=== PATIENT | female | born 1990 | race Caucasian/White ===

== ENCOUNTER 2017-05-26 12:45 | Inpatient (IN) | payer OTHER ==
[~2017-05-26] VITALS: Ht 167.6 cm; Wt 3.2 kg
[2017-06-14] MEDS ORDERED: PRENATAL TABLE1 EAC2 PO (08:15)
[2017-06-14] MEDS ORDERED: VALTREX1000 MG PO (08:16)
[2017-06-14] MEDS ORDERED: PROTONIX40 MG PO (08:16)
[2017-06-14] MEDS ORDERED: FOLIC ACID0.8 MG PO (08:17)
[2017-06-17] MEDS ORDERED: SENNA8.6 MG PO (13:13)
[2017-06-17] MEDS ORDERED: Mylicon 125MG PO (13:13)
[2017-06-17] MEDS ORDERED: OXYC1TAB9 PO (13:13)
== END 2017-06-17 13:29 | disposition home or self-care (01) | DRG 765 ==
LOC: OB/GYN 06-14 07:46 → LDR 06-14 07:46 → O/R 06-14 11:07 → OB/GYN 06-14 11:36
PROVIDERS: Obstetrics & Gynecology
PROC: 4A1HXCZ Monitoring of Products of Conception, Cardiac Rate, External Approach (ICD-10-PCS; 2017-06-14)
PROC: 4A033R1 Measurement of Arterial Saturation, Peripheral, Percutaneous Approach (ICD-10-PCS; 2017-06-14)
PROC: 10D00Z1 Extraction of Products of Conception, Low, Open Approach (ICD-10-PCS; principal; 2017-06-14 09:00)
DX: O75.82 Onset (spontaneous) of labor after 37 completed weeks of gestation but before 39 completed weeks gestation, with delivery by (planned) cesarean section (principal); B00.89 Other herpesviral infection; O98.513 Other viral diseases complicating pregnancy, third trimester; O48.0 Post-term pregnancy; Z3A.40 40 weeks gestation of pregnancy; Z37.0 Single live birth

== ENCOUNTER 2017-06-14 04:45 | Outpatient (CLI) | payer OTHER ==
[2017-06-14] MEDS ORDERED: PRENATAL TABLE1 EAC2 PO (08:15)
[2017-06-14] MEDS ORDERED: VALTREX1000 MG PO (08:16)
[2017-06-14] MEDS ORDERED: PROTONIX40 MG PO (08:16)
[2017-06-14] MEDS ORDERED: FOLIC ACID0.8 MG PO (08:17)
== END 2017-06-14 07:48 | disposition still patient (30) ==
LOC: OBS/DEL 04:45
DX: O48.0 Post-term pregnancy (principal); Z34.03 Encounter for supervision of normal first pregnancy, third trimester